=== PATIENT | female | born 1975 | race Caucasian/White ===

== ENCOUNTER 2016-12-02 09:22 | Emergency (ER) | payer MEDICAID ==
[2016-12-02 10:25] LABS: Hematocrit 41.3 % (37.0-47.0); Hemoglobin 13.4 gm/dL (12.5-16.0); Mean Cell Volume 85.9 fl (78-100); Mean Corpuscular Hemoglobin 27.9 pg (27-31); Mean Corpuscular Hgb Conc 32.4 g/dl (32-36); Mean Platelet Volume 10.6 fl (6.0-9.5); Neutrophil # 10.5 K/mm3 (1.3-6.0); Neutrophil % 73.5 % (42-75.0); Platelet Count 229 K/mm3 (150-450); Red Blood Count 4.81 M/mm3 (4.2-5.4); Red Cell Distribution Width 14.2 % (11.5-14.0); White Blood Count 14.2 K/mm3 (4.0-10.5)
--- NOTE | 2016-12-02 10:25 | ERNOTE ---
Medical Problem HPI - Narrative Date of Service: 12/02/16 - General Chief Complaint: Nausea/Vomiting Time Seen by Provider: 12/02/16 09:54 Source: patient, RN notes reviewed, old records Exam Limitations: other - poor historian - Immun/Allergies/Home Medications Immunizations: IMMUNIZATION HX Immunizations Up to Date Yes Allergies/Adverse Reactions: Allergies No Known Drug Allergies Allergy (Verified 12/02/16 09:44) Home Medications: HOME MEDICATIONS Atorvastatin Calcium [Lipitor] 20 mg PO HS 12/02/16 [Last Taken Unknown] Etonogestrel [Nexplanon] 68 mg SQ 12/02/16 [Last Taken Unknown] Lamotrigine [Lamictal Xr] 25 mg PO DAILY 12/02/16 [Last Taken Unknown] Lorazepam [Ativan] 2 mg PO HS 12/02/16 [Last Taken Unknown] Metformin HCl [Glumetza] 500 mg PO HS 12/02/16 [Last Taken Unknown] Mometasone Furoate [Nasonex] 2 spray NS DAILY 12/02/16 [Last Taken Unknown] Naltrexone HCl [ReVia] 50 mg PO DAILY 12/02/16 [Last Taken Unknown] Omeprazole 40 mg PO DAILY 12/02/16 [Last Taken Unknown] - History of Present History Narrative: 41 y/o female ambulatory to ED with increasing nausea and fatigue that began 2 days ago. She was recently treated for sinusitis with Augmentin. She finished the medication and reports that those symptoms improved. She saw her psychiatrist, Dr. Corey, on 11/27. Some of her medications were stopped and she was started on Lamictal, Naltrexone and Lorazepam. She is not very clear about what exactly she is taking. 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 Date (Duration): 11/30/16 Timing: getting worse Review of Systems - Review of Systems Constitutional: Present: recent illness, fatigue, malaise. Absent: fever, chills EYE: Absent: blurred vision, vision changes ENT: Present: nose congestion, nasal drainage. Absent: ear pain, sore throat, other - sinus pain Respiratory: Present: cough. Absent: shortness of breath Cardiology: Present: no symptoms reported Gastrointestinal/Abdominal: Present: nausea, eating less, other - dry mouth. Absent: vomiting, diarrhea, constipation, abdominal pain, drinking less Genitourinary: Absent: other - possible Musculoskeletal: Present: no symptoms reported Skin: Absent: rash, lesions Neurological: Absent: headache, dizziness/light-headedness Endocrine: Present: no symptoms reported Hematologic/Lymphatic: Present: no symptoms reported Psych: Present: no symptoms reported - Patient's Past Medical History Patient History - Medical: Alcohol Abuse, Anxiety, Diabetes Type 2, Depression, Fibromyalgia, GERD, Headache, Rheumatoid Arthritis Patient History - Cardiac/Respiratory: Hyperlipidemia Patient History - Cancer: No Hx of Cancer Patient History - Surgical Procedures: Cholecystectomy, , EGD, T & A, Other - Septoplasty, Bilateral cubital tunnel release, JOSIANE LMP (females 10-50): Nexplanon - Family History Brother Family History - Medical: No pertinent hx, Other Family History - Cardiac/Respiratory: No pertinent hx Father Family History - Medical: , No pertinent hx Family History - Cardiac/Respiratory: No pertinent hx Grandmother-Maternal Family History - Medical: Diabetes Type 2 Family History - Cardiac/Respiratory: Hypertension Mother Family History - Medical: Diabetes Type 2 Family History - Cardiac/Respiratory: No pertinent hx Sister Family History - Medical: Hypothyroidism Family History - Cardiac/Respiratory: No pertinent hx Aunt Family History - Medical: Diabetes Type 2 Family History - Cardiac/Respiratory: No pertinent hx Uncle Family History - Medical: , No pertinent hx Family History - Cardiac/Respiratory: No pertinent hx - Social History Living Situations: spouse Smoking Status: Current every day smoker Have you smoked in the past 12 months: Yes Alcohol Use: none Drug Use: other - Immunizations History of Influenza Vaccine: Yes Physical Exam - Physical Exam General Appearance: Present: wd/wn, alert, no apparent distress, obese, other - appropriately dressed and groomed, pleasant Eye Exam: Normal inspection: bilateral Ears, Nose, Throat: Present: hearing grossly normal, normal pharynx - with mucinous postnasal drainage. Absent: abnormal TM (R), abnormal TM (L), nasal congestion, pharyngeal erythema, pharyngeal swelling, dry mucous membranes Neck: Present: normal inspection, nontender, supple Respiratory: Present: no respiratory distress, normal breath sounds, no accessory muscle use, lungs clear Cardiovascular/Chest: Present: regular rate, rhythm, no murmur, normal peripheral pulses Gastrointestinal/Abdominal: Present: normal bowel sounds, nondistended, soft, tenderness - mild, RLQ. Absent: rebound Neurological Exam: Present: alert, oriented, normal mood/affect, no motor/ sensory deficits Skin Exam: Present: normal color, warm/dry ED Progress - Results and Orders Patient's Lab Results:: I have reviewed the patient's lab results. - Vital Signs Patient's Vital Signs:: I have reviewed the patient's vital signs. Vital Signs: Vital Signs 12/02/16 09:41 Temperature 35.8 C L Pulse Rate 85 Respiratory 14 Rate Blood Pressure 133/82 O2 Sat by Pulse 96 Oximetry - Progress/Reassessment Chief Complaint: Nausea/Vomiting Progress:: Unchanged Plan - Plan Plan: Mild elevation in WBC but no focal signs of bacterial infection, discussed treating nausea with medication but as she is not vomiting and able to tolerate liquids, we agreed that adding yet another med may make the situation worse. Work excuse given for the next 2 days. Patient is to rest, push fluids and continue her current medications. If symptoms have not improved by then she is to contact psychiatry regarding her medications and the symptoms being d/t side effects. Departure - Departure Clinical Impression: Nausea alone Fatigue Qualifiers: Fatigue type: unspecified Qualified Code(s): R53.83 - Other fatigue Disposition: Home Follow Up Needed Condition: Good Instructions: Nausea, Adult, Form - Excuse from Work, School, or Physical Activity Additional Instructions: Rest Adequate fluid intake Continue your medications Contact Dr. Corey if your symptoms have not improved on Referrals: Low Corey MD [Staff Physician] -
[2016-12-02 10:38] VITALS: BP 134/83
[2016-12-02 10:39] LABS: Albumin * 3.2 gm/dl (3.4-5.0); Anion Gap 11.7 mmol/L (6.8-13.8); BUN/Creatinine Ratio 7.1 (9.0-21.6); Calcium * 9.2 mg/dL (7.9-10.9); Carbon Dioxide 28.2 mmol/L (24-32.6); Potassium 3.9 mmol/L (3.4-4.6); Total Protein 7.6 gm/dL (6.2-8.2)
[2016-12-02 10:40] LABS: Bilirubin, Total 0.6 mg/dL (0.0-1.1); Ca. Corrected For Albumin 9.5 mg/dL (8.4-10.2)
== END 2016-12-02 11:13 | disposition home or self-care (01) ==
LOC: ER 09:22
DX: R11.0 Nausea (principal); R53.83 Other fatigue; F17.210 Nicotine dependence, cigarettes, uncomplicated; E11.9 Type 2 diabetes mellitus without complications; E78.5 Hyperlipidemia, unspecified; K21.9 Gastro-esophageal reflux disease without esophagitis; F41.9 Anxiety disorder, unspecified

== ENCOUNTER 2017-02-13 22:25 | Emergency (ER) | payer MEDICAID ==
[2017-02-13 22:36] VITALS: BP 157/80
--- NOTE | 2017-02-13 23:22 | ERNOTE ---
ENT HPI Date of Service: 02/13/17 - sore throat Time Seen by Provider: 02/13/17 23:17 - Immun/Allergies/Home Medications Immunizations: IMMUNIZATION HX Immunizations Up to Date Yes History of Influenza Vaccine Yes Allergies/Adverse Reactions: Allergies Allergy/AdvReac Type Severity Reaction Status Date / Time No Known Drug Allergies Allergy Verified 12/02/16 09:44 Home Medications: HOME MEDICATIONS Atorvastatin Calcium [Lipitor] 20 mg PO HS 12/02/16 [Last Taken Unknown] Etonogestrel [Nexplanon] 68 mg SQ PRN 12/02/16 [Last Taken Unknown] Lorazepam [Ativan] 2 mg PO HS 12/02/16 [Last Taken Unknown] Mometasone Furoate [Nasonex] 2 spray NS DAILY 12/02/16 [Last Taken Unknown] Naltrexone HCl [ReVia] 50 mg PO DAILY 12/02/16 [Last Taken Unknown] Omeprazole 40 mg PO DAILY 12/02/16 [Last Taken Unknown] lamoTRIgine [Lamictal Xr] 25 mg PO DAILY 12/02/16 [Last Taken Unknown] metFORMIN HCL [Glumetza] 500 mg PO HS 12/02/16 [Last Taken Unknown] - Pain Score Pain Score #1 Pain Score: 5 - History of Present Illness Narrative: patient with right ear pain unresponsive to ibuprofen Date (Duration): 02/11/17 Severity: Present: moderate Prearrival Treatment: Present: no prearrival treatment Modifying Factors - Improves: Reports: activity, medication Modifying Factors - Worsens: Reports: activity Associated Symptoms - ENT: Reports: denies symptoms Prior Treament: Reports: recently seen Review of Systems - Review of Systems Gastrointestinal/Abdominal: Present: no symptoms reported Genitourinary: Present: no symptoms reported Musculoskeletal: Present: no symptoms reported Skin: Present: no symptoms reported Neurological: Present: no symptoms reported Endocrine: Present: no symptoms reported Hematologic/Lymphatic: Present: no symptoms reported Psych: Present: no symptoms reported All Other Systems: All systems neg except as marked - Patient's Past Medical History Patient History - Medical: Alcohol Abuse, Anxiety, Diabetes Type 2, Depression, Fibromyalgia, GERD, Headache, Rheumatoid Arthritis Patient History - Cardiac/Respiratory: No pertinent hx, Hyperlipidemia Patient History - Cancer: No Hx of Cancer Patient History - Surgical Procedures: Cholecystectomy, , EGD, T & A, Other Patient History - Other: None - Family History Brother Family History - Medical: No pertinent hx, Other Family History - Cardiac/Respiratory: No pertinent hx Family History - Cancer: No pertinent family hx Father Family History - Medical: , No pertinent hx Family History - Cardiac/Respiratory: No pertinent hx Grandmother-Maternal Family History - Medical: Diabetes Type 2 Family History - Cardiac/Respiratory: Hypertension Mother Family History - Medical: Diabetes Type 2 Family History - Cardiac/Respiratory: No pertinent hx Sister Family History - Medical: Hypothyroidism Family History - Cardiac/Respiratory: No pertinent hx Aunt Family History - Medical: Diabetes Type 2 Family History - Cardiac/Respiratory: No pertinent hx Uncle Family History - Medical: , No pertinent hx Family History - Cardiac/Respiratory: No pertinent hx - Social History Living Situations: home Abuse History: No History of abuse Psych History: Hx of Anxiety, Hx of Depression Smoking Status: Current every day smoker Have you smoked in the past 12 months: Yes Alcohol Use: none Drug Use: other - Immunizations Immunizations Up to Date: Yes History of Influenza Vaccine: Yes Physical Exam - Physical Exam Narrative: right ear pain is worst pain location General Appearance: Present: wd/wn, alert Eye Exam: Normal inspection: bilateral, PERRL: bilateral, EOMI: bilateral Ears, Nose, Throat: Present: normal ENT inspection, abnormal TM (R), cerumen impaction, nasal congestion Neck: Present: normal inspection Respiratory: Present: no respiratory distress Cardiovascular/Chest: Present: regular rate, rhythm, no murmur Gastrointestinal/Abdominal: Present: normal bowel sounds Rectal Exam: Present: deferred Back Exam: Present: normal inspection Extremity Exam: Present: normal inspection Neurological Exam: Present: alert, oriented, normal mood/affect Skin Exam: Present: normal color Lymphatic Exam: Present: no adenopathy Pelvic Exam: Present: active bleeding, deferred ED Progress - Vital Signs Patient's Vital Signs:: I have reviewed the patient's vital signs. Vital Signs: Vital Signs 02/13/17 22:31 Temperature 37.2 C Pulse Rate 82 Respiratory 17 Rate Blood Pressure 157/80 O2 Sat by Pulse 97 Oximetry - Progress/Reassessment Chief Complaint: Sore Throat Plan - Plan Plan: Patient medicated in ED with Cortisporin otic 4 drops right ear. Patient is stable for discharge. Departure Clinical Impression: Sore throat (viral) Otitis externa Qualifiers: Otitis externa type: noninfectious Noninfectious otitis externa type: reactive Laterality: right Chronicity: acute Qualified Code(s): H60.551 - Acute reactive otitis externa, right ear - Departure Disposition: Home Follow Up Needed Condition: Good Instructions: Otitis Externa, [id number], Pharyngitis, [id number] Print Language: Turkish Additional Instructions: Use ear drops as directed 4 otic drops 4 times a day for 5 days Referrals: Caryn Sultana FNP [Primary Care Provider] -
[2017-02-13] MEDS ORDERED: NEOMY SULF/POLYMYX B SULF/HC 100 DROP BTL ONE (23:29)
[2017-02-13] MEDS ORDERED: NEOMY SULF/POLYMYX B SULF/HC 100 DROP BTL EACH EAR ONE (23:31)
--- OUTSIDE RECORDS SUMMARY | 2017-02-13 23:35 | XMS REPORT | Continuity of Care Document ---
:1975 Author Organization [facility] ([facility]) Address [address] [place] [address] Phone [phone] Care Team Providers Name Role Phone DaniellaDavid petit Primary Care Provider [phone] Source Comments This disclosure is being made pursuant to the Care Everywhere program, applicable federal and state laws, and may not contain all informaitonavailable regarding this patient.[facility] ([facility]) Active Allergies and Adverse Reactions No Known Allergies Current Medications Prescription Sig. Disp. Refills Start Date End Date Status clonazePAM 1 mg tablet Take 1 mg by mouth at Active bedtime as needed. amoxicillin-clavulanat Take 1 Tab by mouth 2 Active e 875-125 mg per times daily. tablet oxyCODONE-acetaminophe Take 1-2 Tabs by mouth Active n 5-325 mg per tablet every 6 hours as needed. Do Not exceed 4000 mg of acetaminophen per 24 hours. Active Problems Problem Noted Date Vitamin D deficiency 12/23/2012 Sciatica of left side 12/21/2012 Migraines 12/21/2012 Myalgia 12/21/2012 Obesity 12/21/2012 Gestational diabetes mellitus in 12/21/2012 Fibromyalgia 12/21/2012 ESR raised 12/21/2012 Sleep disorder 12/21/2012 Social History Tobacco Use Types Packs/Day Years Used Date Current Every Day Smoker Cigarettes 0.25 15 Smokeless Tobacco: Never Used Alcohol Use Drinks/Week oz/Week Comments No Last Filed Vital Signs Vital Sign Reading Time Taken Blood Pressure 140/94 12/21/2012 8:12 AM [employer] Pulse 100 12/21/2012 8:12 AM [employer] OFFICER Temperature 36.5 C (97.7 F) 12/21/2012 8:12 AM [employer] OFFICER Respiratory Rate - - Height 1.65 m (5' 4.96") 12/21/2012 8:12 AM [employer] OFFICER Weight 112.9 kg (248 lb 14.4 oz) 12/21/2012 8:12 AM [employer] OFFICER Body Mass Index 41.47 12/21/2012 8:12 AM [employer] OFFICER Oxygen Saturation - - Plan of Care Health Maintenance Due Date Last Done Comments Hepatitis B Vaccine (1 of 3 - Primary Series) 1975 Tdap Vaccine 1987 Lipid Disorder Screening 1994 MMR Vaccine 1994 Td Vaccine 1994 Pneumococcal Vaccine (1 of 1 - PPSV23) 1995 Cervical Cancer Screening 2006 Influenza Vaccine: Seasonal (#1) 06/09/2016 Mammogram 2016 Results from Last 3 Months Not on file
== END 2017-02-13 23:42 | disposition home or self-care (01) ==
LOC: ER 22:25
DX: H60.551 Acute reactive otitis externa, right ear (principal); J02.9 Acute pharyngitis, unspecified; F17.210 Nicotine dependence, cigarettes, uncomplicated; E11.9 Type 2 diabetes mellitus without complications; K21.9 Gastro-esophageal reflux disease without esophagitis; E78.5 Hyperlipidemia, unspecified; F41.9 Anxiety disorder, unspecified